=== PATIENT | female | born 1995 ===

== ENCOUNTER 2024-12-05 09:04 | Outpatient (CLI) | payer BC, SELFPAY | END 2024-12-05 09:05 | disposition home or self-care (01) | PROVIDERS: PCP Family Medicine; Visit Provider Family Medicine | DX: R80.1 Persistent proteinuria, unspecified (principal); Z83.3 Family history of diabetes mellitus; Z13.6 Encounter for screening for cardiovascular disorders; Z13.1 Encounter for screening for diabetes mellitus | CPT/HCPCS: 80048; 80061; 87086 ==

== ENCOUNTER 2024-12-08 09:53 | Outpatient (CLI) | payer BC, SELFPAY | END 2024-12-08 09:54 | disposition home or self-care (01) | LOC: NFLDREF 12-09 01:22 | PROVIDERS: PCP Family Medicine; Referring Provider Family Medicine; Visit Provider Family Medicine | DX: R80.1 Persistent proteinuria, unspecified (principal) | CPT/HCPCS: 82570; 84156 ==

== ENCOUNTER 2025-04-24 13:30 | Outpatient (CLI) | payer BC, SELFPAY ==
--- NOTE | 2025-04-24 13:45 | CRLHL7_ITS ---
For Patients: As a result of the Century Cures Act, medical imaging exams and procedure reports are released immediately into your electronic medical record. You may view this report before your referring provider. If you have questions, please contact your health care provider. INDICATION: essential (primary) hypertension TECHNIQUE: Grayscale, color flow and spectral Doppler evaluation of the kidneys and renal arteries performed bilaterally. COMPARISON: None available FINDINGS: BILATERAL RENAL ARTERY DUPLEX ULTRASOUND ABDOMINAL AORTA: Peak systolic velocity = 120 cm/s. No aortic aneurysm. RIGHT KIDNEY: 11.6 cm in length. There is no hydronephrosis. Peak systolic velocity = 183 cm/second Renal artery to aortic peak systolic velocity ratio = 1.5 Resistive indices: Normal Renal vein = patent LEFT KIDNEY: 10.7 cm in length. There is no hydronephrosis. Peak systolic velocity = 190 cm/second Renal artery to aortic peak systolic velocity ratio = 1.6 Resistive indices: Normal Renal vein = patent IMPRESSION: No evidence of significant renal artery stenosis. Dictated by Eriberto Marie MD @ 04/24/2025 2:39:23 PM (Electronically Signed)
== END 2025-04-24 13:31 | disposition home or self-care (01) ==
LOC: US 13:31
PROVIDERS: PCP Family Medicine; Visit Provider Internal Medicine Nephrology
DX: I10 Essential (primary) hypertension (principal); R80.1 Persistent proteinuria, unspecified
CPT/HCPCS: 76775; 93975